=== PATIENT | male | born 1995 | race Caucasian/White ===

== ENCOUNTER 2017-04-21 12:48 | Outpatient (CLI) | payer OTHER | END 2017-04-21 21:22 | disposition home or self-care (01) | LOC: MRD 12:48 | PROVIDERS: ATTEND Student in an Organized Health Care Education/Training Program | DX: M25.511 Pain in right shoulder (principal) | CPT/HCPCS: 73030 ==

== ENCOUNTER 2017-09-13 10:04 | Outpatient (CLI) | payer OTHER | END 2017-09-13 22:53 | disposition home or self-care (01) | LOC: MRD 10:04 | PROVIDERS: ATTEND Family Medicine | DX: R76.11 Nonspecific reaction to tuberculin skin test without active tuberculosis (principal) | CPT/HCPCS: 71010 ==

== ENCOUNTER 2017-10-01 17:49 | Outpatient (CLI) | payer OTHER | END 2017-10-01 20:57 | disposition home or self-care (01) | LOC: MLB 17:49 | PROVIDERS: ATTEND Student in an Organized Health Care Education/Training Program | DX: R76.11 Nonspecific reaction to tuberculin skin test without active tuberculosis (principal) | CPT/HCPCS: 36415 ==

== ENCOUNTER 2019-03-26 16:01 | Outpatient (CLI) | payer OTHER | END 2019-03-26 20:47 | disposition home or self-care (01) | LOC: MRD 16:01 | PROVIDERS: ATTEND Family Medicine | DX: R07.81 Pleurodynia (principal) | CPT/HCPCS: 71100 ==

== ENCOUNTER 2020-03-27 15:02 | Outpatient (CLI) | payer OTHER | END 2020-03-27 20:31 | disposition home or self-care (01) | LOC: MRD 15:02 | DX: R76.11 Nonspecific reaction to tuberculin skin test without active tuberculosis (principal) | CPT/HCPCS: 71046 ==

== ENCOUNTER 2020-05-26 14:30 | Outpatient (CLI) | payer OTHER | END 2020-05-26 21:37 | disposition home or self-care (01) | LOC: MRD 14:30 | DX: M67.472 Ganglion, left ankle and foot (principal); M79.9 Soft tissue disorder, unspecified; R60.9 Edema, unspecified | CPT/HCPCS: 73630; 76881; Q0092 ==

== ENCOUNTER 2020-09-11 07:03 | Outpatient (CLI) | payer OTHER | END 2020-09-11 20:18 | disposition home or self-care (01) | LOC: MRD 07:03 | DX: M25.511 Pain in right shoulder (principal) | CPT/HCPCS: 73030 ==